=== PATIENT | male | born 1935 | race Caucasian/White ===

== ENCOUNTER 2024-12-04 10:27 | Emergency (ER) | payer MEDICARE, OTHER, SELFPAY ==
--- NOTE | ~2024-12-04 | XR_ITS ---
CHEST RADIOGRAPH, PA AND LATERAL CLINICAL HISTORY: weakness FALL? LEANING TO RIGHT CONFUSION SLEEPING . COMPARISON: 03/01/2022 TECHNIQUE: PA and lateral views of the chest. Examination is limited as patient is rotated to the right side (consistent with patient's history) FINDINGS Sternal wires and mediastinal clips are identified, the wires are midline and intact. The remainder of the cardiomediastinal silhouette is otherwise unremarkable. Increased interstitial markings are identified bilaterally, findings suggesting mild pulmonary vascul ar congestion. The lungs are otherwise clear. IMPRESSION: Mild pulmonary vascular congestion, without focal infiltrate or effusion. Reviewed, dictated and finalized at location A.
--- NOTE | ~2024-12-04 | CT_ITS ---
CLINICAL INDICATION: Fall COMPARISON: None. TECHNIQUE: An enhanced CT of the abdomen and pelvis was performed utilizing multislice spiral Trust[employer] ue reconstructed at 5 mm slice thickness. Coronal and sagittal reconstructions were performed. This CT examination was performed utilizing dose reduction techniques. DLP: 1393 mGy-cm FINDINGS/OBSERVATIONS: Lung: Panlobular emphysematous disease with trace bibasilar atelectasis. The lungs are otherwise clear. The heart is of normal size, without pericardial effusion. Mediastinum: No pathologically enlarged or morphologically suspicious lymph nodes are identified within the medias tinum, bilateral axilla, within the soft tissues of the anterior chest wall. Soft tissues of the chest: Unremarkable. Bones of the chest: No acute fracture. No lytic or blastic lesions are identified. Liver: The liver enhances homogeneously and is enlarged measuring 20 cm in longitudinal dimension. Gallbladder and biliary system: The gallbladder is surgically absent. Pancreas: The pancreas enhances homogeneously, without ductal dilatation. Spleen: The spleen enhances homogeneously and is not enlarged. Kidneys: The bilateral kidneys are atrophic with significant cortical thinning and the surrounding inflammator y change. The thin cortex enhances symmetrically without hydronephrosis or renal calculi. Adrenal glands: Unremarkable. Gastrointestinal tract: Small hiatal hernia is present. Colonic diverticulosis without surrounding inflammatory change. Fecal stasis within the colon. Appendix: The appendix is not definitively visualized. However, no pericecal inflammatory change is identified suggest the presence of acute appendicitis. Vasculature: Densely calcified atherosclerotic disease. Retroaortic left renal vein is incidentally noted. Lymph nodes: Scattered nonpathologically enlarged lymph nodes within the root of the mesentery and deep in the pel vis. Pelvic structures: The bladder is only minimally distended and otherwise unremarkable. The prostate gland is not enlarged. Body wall and musculoskeletal: Significant degenerative disease within the thoracic and lumbosacral spines with osteophyte formation , disc space narrowing, endplate changes and vacuum phenomena. No compression fractures are appreciated. Sternal wires are identified within the chest, without sternal fracture. No rib fractures are appreciated. IMPRESSION: No acute findings within the chest, abdomen or pelvis. Innumerable nonacute findings, as detailed above. Reviewed, dictated and finalized at location A.
--- NOTE | ~2024-12-04 | CT_ITS ---
History: Confusion, fall. PROCEDURE: CT head without contrast. COMPARISON: 01/15/2024 TECHNIQUE: Axial imaging of the head performed from the skull base to the vertex without IV contrast. Sagittal a nd coronal reformations obtained. DLP: 681 mGy-cm FINDINGS: The ventricles are enlarged. The dilatation of the ventricles is proportional to the degree of sulcal prominence, not uncommon in the senescent brain. Decreased attenuation is identified within the periventricular white matter, likely secondary to micr ovascular ischemic disease, in a patient of this age. There is no mass, mass effect or midline shift. There is no abnormal extra-axial fluid collection or intracranial hemorrhage. Visualized paranasal sinuses are clear. The mastoid air cells are well aerated. No acute displaced fractures within the overlying cranium. Impression: No acute intracranial hemorrhage or suspicious mass effect. Reviewed, dictated and finalized at location A. Impression: No acute intracranial hemorrhage or suspicious mass effect.
--- NOTE | ~2024-12-04 | XR_ITS ---
HISTORY: fall HEMATOMA NOTED TO POST RT MID HAND COMPARISON: None TECHNIQUE: 3 views of the right hand were performed. FINDINGS: No acute fracture is identified. Gullwing deformity is identified within the proximal interphalangeal joint spaces of the second, thir d, fourth and fifth digits. Degenerative disease is identified within the first carpometacarpal joint space. The carpal arcs are otherwise intact. Mild radiocarpal joint space narrowing with sclerosis of the distal radius is present. Bone mineralization is age-appropriate. No significant soft tissue swelling. No radiopaque foreign body is identified. IMPRESSION: No acute fracture or dislocation within the right hand, as detailed above. Reviewed, dictated and finalized at location A.
--- NOTE | 2024-12-04 10:31 | ECG_ITS ---
Test Date: 2024-12-04 10:55:42 Measurements Intervals [place] Rate: 67 P: 34 SD: 181 QRS: 81 QRSD: 136 T: 52 QT: 437 QTc: 462 Interpretive Statements SINUS RHYTHM RIGHT BUNDLE BRANCH BLOCK [120+ ms QRS DURATION, UPRIGHT V1, 40+ ms S IN I/aVL/V4/V5/V6] No previous ECG available for comparison Electronically Signed On 12-04-2024 20:45:55 CDT by Martell Wylie M.D.
[2024-12-04 10:42] VITALS: BP 147/73; PULSE 68; RESP 20; TEMP 36.6; O2SAT 96
--- OUTSIDE RECORDS SUMMARY | 2024-12-04 10:43 | XMS_ITS | Continuity of Care Document ---
Author Organization [facility] Address [address] [facility] [address] [place] [address] Phone Care Team Providers Care Slot Floor Attendant Name Role Phone Unavailable Unavailable Unavailable Allergies, Adverse Reactions, Alerts Substance Reaction Status Criticality No Known Allergies Active No Inform ation Medications Medication Instructions Dosage Effective Dates (start - stop) Status Comments cephalexin 500 mg capsule take 1 capsule po bid x 10 days - Active triamcinolone acetonide 0.1 % topical cream apply to aa's bid prn itch - Active isosorbide mononitrate ER 30 mg tablet,extended release 24 hr take 1 tablet by oral route every day in the morning 30 MG - Active Benicar HCT 40 mg-12.5 mg tablet take 1 tablet by oral route every day 1.00 tablet - Active Simcor 1,000 mg-20 mg tablet,extended release take 1 tablet by oral route every day at bedtime after a low-fat snack - Active metoprolol succinate ER 50 mg tablet,extended release 24 hr take 1 tablet by oral route every day 50 MG - Active metformin 500 mg tablet take 1 tablet by oral route 2 times every day with morning and evening meals 500 MG - Active Nitrostat 0.[address] 1 tablet by sublingual route at the 1st sign of attack; may repeat every 5 min until relief; if pain persists after 3 tablets in 15 min, prompt medical attention is recommended 0.6 MG - Active Procedures Procedure Date No SKIN TISSUE REARRANGEMENT MOHS, 1 STAGE, H/N/HF/G MOHS ADDL STAGE Offic/outpt E&m [facility] Abram 5 Advance Directives Directive Yes / No Effective Date File Name No Information Encounters Encounter Description Practice Location Reason(s) For Visit Diagnoses Date Provider Providers Copied on Encounter [facility], [id number], [place], [place], [id number], tel:[phone] [facility] No Information [address] [facility], [address] [facility] [address] , [place], [place], [address], tel:[phone] [facility] Suture removal (chief complaint) Encounter for removal of suturesBasal cell carcinoma of skin of scalp and neck [address] [facility], [address] [facility] [address] , [place], [place], [id number], tel:[phone] [facility] Basal cell carcinoma of skin of scalp and neck 6 No Information Offic/outpt E[facility] Abram Ortega, [address] [facility] [address] , [place], [place], [address], tel:[phone] [facility] history of skin cancer (chief complaint)M OHS consult (chief complaint) Basal cell carcinoma of skin of scalp and neckPersonal history of other malignant neoplasm of skinInsect bite (nonvenomous) of abdominal wall, init encntr 5 No Information Family History Family Member Type Diagnosis Age At Onset No Information Payers Payer name Insurance type Covered alliance party ID Authoriza tion(s) Medicare [place] [id number] For Life- TDFIC TDDIR [id number] Social History Type Description Quantity Date Captured Comments Alcohol Use Details Unknown Caffeine Use Details Unknown Tobacco Use Status No Information Smoking Status No Information Sex Male Chief Complaint And Reason For Visit No Information Reason For Referral Reason For Referral No Information History Of Present Illness Encounter Date Complaint History Of Prese nt Illness Suture removal 79 year old male presents for the removal of sutures from the Left post auricular neck s/p MOHS done on 07/16/15 MOHS consult 79 year old male presens witht biopsy proven bcc, infiltrative on the let post auricular sulcus history of skin cancer The surgi vida site is healed. Additional Info: patient has a history of multiple bcc treated, right lip, nose, trunk. Functional Status Date Functional Assessmen t No Information Instructions Date Instruction Additional Infor isael Follow up with Dr. Sage mcdanieln, patient to return to Dr. Hill for any dermatology needs. Related to Encounter for removal of sutures get approval from [facility] then schedule patient for MOHS Related to Basal cell carcinoma of skin of scalp and neck Assessments Type Assessment Date No Information Patient Care Teams Name Effective Dates (start - stop) Status Members No Information
--- OUTSIDE RECORDS SUMMARY | 2024-12-04 10:43 | XMS_ITS | Continuity of Care Document ---
Author Organization [facility] Address [address] [place] [address] [place] [address] Phone Care Team Providers Care Fork Truck Driver Name Role Phone Terell Gupta Unavailable Unavailable Procedures Procedure Date Office/outpatient Visit, Est Eye Exam & Treatment No Script Refraction Eye Exam, New Patient Refraction Advance Directives Directive Yes / No Effective Date File Name No Information Encounters Encounter Description Practice Location Reason(s) For Visit Diagnoses Date Provider Providers Copied on Encounter Office/outpat ient Visit, Est [facility], [address] [place] [address] [address], [place], [place], [id number], tel:[phone] [facility]3] No Information [phone] 0 Candy Figueredo. [facility] [address], [place], [address], [place]. tel:[phone] Referring Provider: Evelyn [facility] [address], [place], [address]. tel:[phone] [facility], [address] [place] [address] [address], [place], [place], [id number], tel:[phone] [facility] No Information 0-200 9 Candy Figueredo. Evelyn [facility] [address], [place], [address], [place]. tel:[phone] [facility] Eye [facility], [address], [place], [place], [address], [place] tel:[phone] [facility] No Information [address] , [address], [place], [address], [place]. tel:[phone] Family History Family Member Type Diagnosis Age At Onset No Information Payers Payer name Insurance type Covered constitution party ID Authoriza tion(s) Medicare [facility] [id number] For Life [facility] [id number] Social History Type Description Quantity Date Captured Comments Sex Male Smoking Status No Information Chief Complaint And Reason For Visit No Information Reason For Referral Reason For Referral No Information History Of Present Illness Encounter Date Complaint History Of Prese nt Illness No Information Functional Status Date Functional Assessmen t No Information Instructions Date Instruction Additional Infor mation No Information Assessments Type Assessment Date No Information Patient Care Teams Name Effective Dates (start - stop) Status Members No Information
[2024-12-04 11:01] LABS: Basophils Absolute Auto 0.1 K/mm3 (0.0-0.1); Basophils Percent Auto 0.9 % (0.2-1.2); Eosinophils Absolute Auto 0.6 K/mm3 (0-0.3); Eosinophils Percent Auto 5.9 % (0-4.4); Hematocrit 44.3 % (42.0-52.0); Hemoglobin 13.9 g/dL (14.0-18.0); Immature Granulocyte Absolute 0.02 K/mm3 (0.00-0.031); Immature Granulocyte Percent A 0.2 % (0-0.5); Lymphocytes Absolute Auto 2.57 K/mm3 (0.9-3.2); Lymphocytes Percent Auto 26.1 % (18.3-44.2); Mean Corpuscular HGB Conc 31.4 g/dl (32-36); Mean Corpuscular Hemoglobin 30.1 pg (26-34); Mean Corpuscular Volume 95.9 fl (80-100); Mean Platelet Volume 12.5 fl (7.4-10.4); Monocytes Absolute Auto 0.8 K/mm3 (0.1-0.6); Monocytes Percent Auto 8.2 % (2.6-8.5); Neutrophils Absolute Auto 5.8 K/mm3 (1.3-6.7); Neutrophils Percent Auto 58.7 % (45.5-73.1); Platelet Count Result 159 k/mm3 (150-375); Red Blood Count 4.62 M/mm3 (4.6-6.20); Red Cell Distribution Width 13.1 % (11.5-14.5); White Blood Count 9.8 K/mm3 (4.5-10.0)
--- NOTE | 2024-12-04 11:02 | ED_ITS ---
HPI - Altered Mental Status General Chief Complaint: Weakness Stated Complaint: increased confusion, slid out of bed Time Seen by Provider: 12/04/24 10:29 Source: EMS Mode of arrival: EMS Limitations: altered mental status and clinical condition History of Present Illness HPI narrative: 89 YEARS OLD WHITE MALE CAME FROM [place]AIL BY AMBULANCE WITH POSSIBLE INCREASE CONFUSION PATIENT BEEN HALLUCINATING FOR THE LAST 2 WEEKS ACCORDING TO HIS DAUGHTER, PROBABLY LITTLE BIT WEAKER THAN USUAL, PATIENT SLID DOWN OUT OF BED THIS MORNING, SLIGHT BRUISES AND RIGHT ABDOMEN, RIGHT HAND TENDERNESS. THE REPORT DENIED THE PATIENT HIT HIS HEAD OR NECK. HISTORY OF ADVANCED DEMENTIA. Review of Systems 2 Review of Systems: All systems reviewed & are unremarkable except as noted in HPI and below Exam 2 Narrative: GENERAL APPEARANCE: WELL-DEVELOPED, WELL-NOURISHED SKIN: NORMAL COLOR HEAD: NORMOCEPHALIC, NONTRAUMATIC EYES: CLEAR CONJUNCTIVA ENT: OROPHARYNX NORMAL, EARS NORMAL, NOSE NORMAL NECK: SUPPLE, NONTENDER CHEST AND RESPIRATORY: AIRWAY PATENT, NO RESPIRATORY DISTRESS, NO ACCESSORY MUSCLE USE HEART: REGULAR RATE/RHYTHM ABDOMEN: SOFT, NONTENDER, NO ORGANOMEGALY, QUIET BOWEL SOUNDS SUPERFICIAL ABRASION AT THE RIGHT ABDOMEN VASCULAR: NORMAL PERIPHERAL PULSES, NORMAL CAPILLARY REFILL. MUSCULOSKELETAL: NORMAL RANGE OF MOTION, NONTENDER BACK NEUROLOGIC: ALERT ORIENTED TO HIS NAME ONLY Course Vital Signs Vital signs: Vital Signs Temperature 36.6 C 12/04/24 10:42 Pulse Rate 68 12/04/24 10:42 Respiratory Rate 20 12/04/24 10:42 Blood Pressure 147/73 H 12/04/24 10:42 Pulse Oximetry 96 12/04/24 10:42 Oxygen Delivery Room Air 12/04/24 10:42 Temperature 36.6 C 12/04/24 10:42 Pulse Rate 86 12/04/24 14:22 Respiratory Rate 18 12/04/24 14:22 Blood Pressure 163/93 H 12/04/24 14:22 Pulse Oximetry 97 12/04/24 14:22 Oxygen Delivery Room Air 12/04/24 10:42 MDM - Altered Mental Status MDM Narrative Medical decision making narrative: PATIENT PRESENTS WITH WEAKNESS, CONFUSION, DEMENTIA VITAL SIGNS ARE STABLE PHYSICAL EXAMINATION SHOWING ABRASION ON THE RIGHT ABDOMEN, SLIGHTLY TENDER DORSAL SIDE OF THE RIGHT HAND DIFFERENTIAL DIAGNOSIS INCLUDE DEMENTIA EXACERBATION, ELECTROLYTE IMBALANCE, DEHYDRATION, URINARY TRACT INFECTION, PNEUMONIA, CVA. BLOOD WORKUP TODAY INCLUDES CBC, CMP, LIPASE SHOWED CREATININE 1.6 OTHERWISE INSIGNIFICANT FINDING URINALYSIS SHOWED NO EVIDENCE OF INFECTION RIGHT HAND X-RAY SHOWED NO ACUTE ABNORMALITY, CHEST X-RAY SHOWED MILD PULMONARY CONGESTION CT HEAD WITHOUT CONTRAST SHOWED NO ACUTE ABNORMALITY CT CHEST ABDOMEN AND PELVIS WITH IV CONTRAST SHOWED NO ACUTE ABNORMALITY PATIENT'S DAUGHTER AT THE BEDSIDE WHO IS TELLING ME THAT PATIENT DOES NOT LOOK ANY DIFFERENT COMPARED TO 1 WEEK AGO. DIAGNOSIS: CONFUSION, WEAKNESS, FALL, DEMENTIA THE PT WAS DISCHARGED TO HOME.THE PT,S CONDITION UPON DISCHARGE WAS FAIR,EDUCATION WAS PROVIDED TO THE PT IN REFERENCE TO THE FINAL IMPRESSION,DISCHARGE STUDY RESULTS,TREATMENT,PROGNOSIS AND NEED FOR FOLLOW UP . Differential Diagnosis Differential diagnosis: Likely other ( ABOVE) Medical Records Attestation: I reviewed the patient's medical records. Lab Data Attestation: I reviewed the patient's lab results. 12/04/24 10:52 12/04/24 10:52 Labs: Lab Results 12/04/24 Range/Units 10:52 WBC 9.8 (4.5-10.0) K/mm3 RBC 4.62 (4.6-6.20) M/mm3 Hgb 13.9 L (14.0-18.0) g/dL Hct 44.3 (42.0-52.0) % MCV 95.9 (80-100) fl MCH 30.1 (26-34) pg MCHC 31.4 L (32-36) g/dl RDW 13.1 (11.5-14.5) % Plt Count 159 (150-375) k/mm3 MPV 12.5 H (7.4-10.4) fl Immature Gran % (Auto) 0.2 (0-0.5) % Neut % (Auto) 58.7 (45.5-73.1) % Lymph % (Auto) 26.1 (18.3-44.2) % [place] % (Auto) 8.2 (2.6-8.5) % Eos % (Auto) 5.9 H (0-4.4) % Baso % (Auto) 0.9 (0.2-1.2) % Lymph # (Auto) 2.57 (0.9-3.2) K/mm3 [place] # (Auto) 0.8 H (0.1-0.6) K/mm3 Eos # (Auto) 0.6 H (0-0.3) K/mm3 Baso # (Auto) 0.1 (0.0-0.1) K/mm3 Abs Immat Gran (auto) 0.02 (0.00-0.031) K/mm3 Absolute Neuts (auto) 5.8 (1.3-6.7) K/mm3 Absolute Nucleated RBC 0.000 (0.0-0.012) K/mm3 Nucleated RBC % 0.0 (0.0-0.2) % Sodium 143 (137-145) mmol/L Potassium 4.9 (3.4-5.0) mmol/L Chloride 107 (98-107) mmol/L Carbon Dioxide 29 (22-30) mmol/L Anion Gap 7 (4-12) mmol/L BUN 34 H (9-20) mg/dL Creatinine 1.60 H (0.7-1.3) mg/dL Estim Creat Clear Calc 29 ml/min Estimated GFR 41 L (59 - ) Glucose 129 H (65-110) mg/dL Calcium 9.5 (8.4-10.2) mg/dL Total Bilirubin 0.8 (0.2-1.3) mg/dL AST 25 (17-59) U/L ALT 21 (6-50) U/L Alkaline Phosphatase 57 (38-126) U/L Total Protein 7.0 (6.3-8.2) g/dL Albumin 3.9 (3.5-5.1) g/dL Urine Color Yellow (Yellow) Urine Appearance Clear (Clear) Urine pH 5.0 (5.0-9.0) Ur Specific [place] 1.026 (1.001-1.035) Urine Protein 2+ H (Negative) mg/dL Urine Glucose (UA) Negative (Negative) mg/dL Urine Ketones Trace H (Negative) mg/dL Ur Blood (Man) Negative (Negative) Urine Nitrate Negative (Negative) Urine Bilirubin Negative (Negative) Urine Urobilinogen 0.2 (<2.0) mg/dL Leukocyte Esterase Rfl Negative (Negative) MARY/UL Urine RBC 0-2 (0-2) /hpf Urine WBC 0-5 (0-3) /hpf Ur Squamous Epith Cells None seen (Few) /hpf Urine Bacteria None seen /hpf Urine Casts 3-5 Imaging Data Radiologist's impression: Impressions Hand X-Ray 12/04/24 11:30 IMPRESSION: No acute fracture or dislocation within the right hand, as detailed above. Chest X-Ray 12/04/24 11:32 IMPRESSION: Mild pulmonary vascular congestion, without focal infiltrate or effusion. Head CT 12/04/24 11:33 Impression: No acute intracranial hemorrhage or suspicious mass effect. Chest/Abdomen/Pelvis CT 12/04/24 11:42 IMPRESSION: No acute findings within the chest, abdomen or pelvis. Innumerable nonacute findings, as detailed above. Critical Care Time Critical Care Time Critical Care Time: No Discharge Plan Discharge Clinical Impression: Weakness, Dementia Patient Disposition: NH Half-Way/Asst Living Condition: Stable Instructions: Weakness (ED) Additional Instructions: Return if symptoms are worsening , call your family physician for appointment, take Tylenol as as needed for aches and pain, continue home medications. Patient Language: Syriac Follow-up/Referrals: John Mcnally MD [Primary Care Provider] -
[2024-12-04 11:11] LABS: Alanine Aminotransferase 21 U/L (6-50); Albumin Level 3.9 g/dL (3.5-5.1); Alkaline Phosphatase 57 U/L (38-126); Anion Gap 7 mmol/L (4-12); Aspartate Amino Transferase 25 U/L (17-59); Bilirubin,Total 0.8 mg/dL (0.2-1.3); Blood Urea Nitrogen 34 mg/dL (9-20); Calcium 9.5 mg/dL (8.4-10.2); Carbon Dioxide 29 mmol/L (22-30); Chloride 107 mmol/L (98-107); Estimated CRCL calculation 29 ml/min; Estimated Glomerular Filt Rate 41; Glucose 129 mg/dL (65-110); Potassium 4.9 mmol/L (3.4-5.0); Sodium 143 mmol/L (137-145)
[2024-12-04 11:21] LABS: Add Urine Microscopic? YES; Appearance Urine Clear (Clear); Bacteria Urine None Seen /hpf; Bilirubin Urine Negative (Negative); Blood Urine Negative (Negative); Color Urine Yellow (Yellow); Glucose Urine UA Negative (Negative); Ketones Urine Trace mg/dL (Negative); Leukocyte Esterase Ur Negative LEU/UL (Negative); Nitrate Urine Negative (Negative); Protein Urine 2+ mg/dL (Negative); RBC Urine 0-2 /hpf (0-2); Specific Grav Ur 1.026 (1.001-1.035); Squamous Epithelial Cell Urine None Seen /hpf (Few); Urobilinogen Urine 0.2 mg/dL (<2.0); WBC Urine 0-5 /hpf (0-3)
[2024-12-04 14:22] VITALS: BP 163/93; PULSE 86; RESP 18; O2SAT 97
== END 2024-12-04 14:42 ==
PROVIDERS: Emergency Provider Emergency Medicine; PCP Family Medicine
DX: R53.1 Weakness (principal); F03.90 Unspecified dementia, unspecified severity, without behavioral disturbance, psychotic disturbance, mood disturbance, and anxiety; S60.221A Contusion of right hand, initial encounter; S30.811A Abrasion of abdominal wall, initial encounter; I45.10 Unspecified right bundle-branch block; R09.89 Other specified symptoms and signs involving the circulatory and respiratory systems; W06.XXXA Fall from bed, initial encounter
CPT/HCPCS: 36415; 70450; 71046; 71260; 73130; 74177; 80053; 81001; 85025; 93005; 96360; 99284; Q9967